=== PATIENT | male | born 1955 ===

== ENCOUNTER 2020-06-11 10:36 | Emergency (ER) | payer MEDICARE, MEDICAID ==
--- NOTE | 2020-06-11 11:25 | Event Note ---
ED Screening Note Date of service: 06/11/20 Time: 11:24 ED Screening Note: 65-year-old male presents to the ER today complaint of low abdominal pain, abdominal distention, difficulty urinating and dysuria for the past 2 days. Patient does have a history of BPH and is currently on Flomax. He denies any other associated symptoms at this time. This initial assessment/diagnostic orders/clinical plan/treatment(s) is/are subject to change based on patients health status, clinical progression and re- assessment by fellow clinical providers in the ED. Further treatment and workup at subsequent clinical providers discretion. Patient/guardian urged not to elope from the ED as their condition may be serious if not clinically assessed and managed. Initial orders include: Abdominal pain order set
[2020-06-11 12:00] LABS: Basophils # (Auto) 0.1 K/mm3 (0.0-0.1); Eosinophils # (Auto) 0.3 K/mm3 (0.0-0.4); Eosinophils % (Auto) 4.4 % (0.0-4.3); Hematocrit 38.1 % (35.5-45.6); Hemoglobin 12.6 gm/dl (11.8-15.2); Lymphocytes # (Auto) 2.7 K/mm3 (1.2-5.4); Lymphocytes % (Auto) 38.8 % (13.4-35.0); Mean Corpuscular HGB Conc 33 % (32-34); Mean Corpuscular Volume 80 fl (84-94); Monocytes # (Auto) 0.7 K/mm3 (0.0-0.8); Monocytes % (Auto) 9.5 % (0.0-7.3); Platelet Count 194 K/mm3 (140-440); Red Blood Count 4.74 M/mm3 (3.65-5.03); Red Cell Distribution Width 14.2 % (13.2-15.2)
[2020-06-11 12:19] LABS: Alanine Aminotransferase 23 units/L (7-56); Albumin 4.2 g/dL (3.9-5); BUN/Creatinine Ratio 7; Blood Urea Nitrogen 10 mg/dL (9-20); Calcium 9.4 mg/dL (8.4-10.2); Hemolysis Index 2
[2020-06-11 12:25] LABS: Bilirubin,Direct < 0.2 mg/dL (0-0.2)
[2020-06-11 12:34] LABS: Bilirubin,Urine NEG (Negative); Blood,Urine NEG (Negative); Color,Urine Straw (Yellow); Protein,Urine <15 mg/dL mg/dL (Negative); Urobilinogen,Urine < 2.0 mg/dL (<2.0)
--- NOTE | 2020-06-11 12:42 | Emergency Department Report ---
ED General Adult HPI - General Chief complaint: Abdominal Pain Stated complaint: GROIN AND LOWER ABD PAIN Time Seen by Provider: 06/11/20 10:53 Source: patient Mode of arrival: Ambulatory Limitations: No Limitations - History of Present Illness Initial comments: This is a 65-year-old male who is apparently dysarthric I presume from prior stroke. He presents with I believe his daughter who has limited knowledge of his medical condition. She states that she thinks he has seen a local urologist. She is not aware of him having a prostate condition. However, as per medical screening note: 65-year-old male presents to the ER today complaint of low abdominal pain, abdominal distention, difficulty urinating and dysuria for the past 2 days. Patient does have a history of BPH and is currently on Flomax. He denies any other associated symptoms at this time. The patient does point to the suprapubic area as a source of his discomfort. He urinated in the waiting room. After some time he did produce another urine specimen. It was really impossible to ascertain if he was having the sensation of urinary retention. As above, the history of BPH may be just a presumption. The patient is on Flomax. His symptoms are of the past less than 2 days duration. The family does not refer fever, chills, vomiting or change in bowel habits. They think the patient is having some dysuria. -: Gradual, days(s) Location: abdomen (Suprapubic area) Radiation: non-radiation Quality: aching Consistency: intermittent Improves with: none Worsens with: none Associated Symptoms: other (Question dysuria) Treatments Prior to Arrival: none - Related Data Previous Rx's Medication Instructions Recorded Last Taken Type Nitrofurantoin [place]/M-Cryst 100 mg PO Q12HR #14 capsule 06/11/20 Unknown Rx [Macrobid CAP] Allergies Allergy/AdvReac Type Severity Reaction Status Date / Time No Known Allergies Allergy Verified 06/11/20 10:46 ED Review of Systems ROS: Stated complaint: GROIN AND LOWER ABD PAIN Other details as noted in HPI Comment: Unobtainable due to pts medical conditions ED Past Medical Hx - Past Medical History Previous Medical History?: Yes Hx Hypertension: Yes - Surgical History Past Surgical History?: No - Social History Smoking Status: Never Smoker Substance Use Type: None - Medications Home Medications: Home Medications Medication Instructions Recorded Confirmed Last Taken Type Nitrofurantoin [place]/M-Cryst 100 mg PO Q12HR #14 capsule 06/11/20 Unknown Rx [Macrobid CAP] ED Physical Exam - General Limitations: Language Barrier (Expressive aphasia), Physical Limitation General appearance: alert, in no apparent distress - Head Head exam: Present: atraumatic, normocephalic - Eye Eye exam: Present: normal appearance. Absent: scleral icterus - ENT ENT exam: Present: mucous membranes moist - Neck Neck exam: Present: normal inspection - Respiratory Respiratory exam: Present: normal lung sounds bilaterally. Absent: respiratory distress - Cardiovascular Cardiovascular Exam: Present: regular rate, normal rhythm. Absent: systolic murmur, diastolic murmur, rubs, gallop - GI/Abdominal GI/Abdominal exam: Present: soft, normal bowel sounds, other (No gross cystomegaly, may be mild distention. ). Absent: distended, tenderness, guarding, rebound, rigid - Rectal Rectal exam: Present: deferred - Extremities Exam Extremities exam: Present: normal inspection. Absent: calf tenderness - Back Exam Back exam: Present: normal inspection - Neurological Exam Neurological exam: Present: alert, other (No acute focal deficit is referred or noted) - Psychiatric Psychiatric exam: Present: normal affect, normal mood - Skin Skin exam: Present: warm, dry, intact, normal color. Absent: rash ED Course Vital Signs 06/11/20 06/11/20 06/11/20 10:51 11:38 11:43 Temperature 97.9 F 97.3 F L Pulse Rate 75 78 Respiratory 16 13 18 Rate Blood Pressure 161/80 Blood Pressure 165/84 [Right] O2 Sat by Pulse 96 100 99 Oximetry 06/11/20 06/11/20 06/11/20 11:45 11:48 12:01 Temperature Pulse Rate 71 76 Respiratory 14 18 15 Rate Blood Pressure 165/84 165/84 Blood Pressure [Right] O2 Sat by Pulse 99 99 98 Oximetry 06/11/20 06/11/20 12:15 12:31 Temperature Pulse Rate 68 62 Respiratory 11 L 12 Rate Blood Pressure 150/57 150/57 Blood Pressure [Right] O2 Sat by Pulse 98 99 Oximetry - Reevaluation(s) Reevaluation #1: I discussed the patient's GFR and creatinine with CT staff. They stated they would give a half dose contrast followed by a saline flush as per radiology protocol. 06/11/20 12:43 ED Medical Decision Making - Lab Data Result diagrams: 06/11/20 11:42 06/11/20 11:42 Laboratory Results - last 24 hr 06/11/20 06/11/20 06/11/20 11:42 11:42 Unknown WBC 7.1 RBC 4.74 Hgb 12.6 Hct 38.1 MCV 80 L MCH 27 L MCHC 33 RDW 14.2 Plt Count 194 Lymph % (Auto) 38.8 H [place] % (Auto) 9.5 H Eos % (Auto) 4.4 H Baso % (Auto) 1.0 Lymph # (Auto) 2.7 [place] # (Auto) 0.7 Eos # (Auto) 0.3 Baso # (Auto) 0.1 Seg Neutrophils % 46.3 Seg Neutrophils # 3.3 Sodium 140 Potassium 3.8 Chloride 104.5 Carbon Dioxide 25 Anion Gap 14 BUN 10 Creatinine 1.4 H Estimated GFR 51 BUN/Creatinine Ratio 7 Glucose 93 Calcium 9.4 Total Bilirubin 1.00 Direct Bilirubin < 0.2 AST 28 ALT 23 Alkaline Phosphatase 84 Total Protein 7.0 Albumin 4.2 Albumin/Globulin Ratio 1.5 Lipase 31 Urine Color Straw Urine Turbidity Clear Urine pH 6.0 Ur Specific [place] 1.009 Urine Protein <15 mg/dl Urine Glucose (UA) Neg Urine Ketones Neg Urine Blood Neg Urine Nitrite Neg Urine Bilirubin Neg Urine Urobilinogen < 2.0 Ur Leukocyte Esterase Sm Urine WBC (Auto) 11.0 H Urine RBC (Auto) 2.0 U Epithel Cells (Auto) 1.0 Urine Yeast (Budding) Few - Radiology Data FINDINGS: LOWER CHEST: No significant abnormality. LIVER: No significant abnormality. GALLBLADDER: No significant abnormality. BILE DUCTS: No significant abnormality. PANCREAS: No significant abnormality. SPLEEN: No significant abnormality. ADRENALS: No significant abnormality of the right adrenal gland. An indeterminate left adrenal nodule measures 1.4 x 1.3 cm on image 28 of series 4. RIGHT KIDNEY / URETER: There is mild prominence of the right renal collecting system and ureter without visualization of an obstructive stone/other lesion. No other significant abnormality. LEFT KIDNEY / URETER: There is mild prominence of the left renal collecting system and ureter, similar to that seen on the right, without visualization of an obstructive stone/other lesion. There are multiple subcentimeter left renal cysts. No other significant abnormality. STOMACH / SMALL BOWEL: No significant abnormality. COLON: No significant abnormality. APPENDIX: No significant abnormality. PERITONEUM: No free fluid. No free air. No fluid collection. LYMPH NODES: No significant adenopathy. AORTA / ARTERIES: No significant abnormality. IVC / VEINS: No significant abnormality. URINARY BLADDER: Well-distended with mild perivesical fat stranding and mild wall thickening without an intraluminal abnormality. REPRODUCTIVE ORGANS: No significant abnormality. ADDITIONAL FINDINGS: Uncomplicated small left inguinal hernia containing fat. SKELETAL SYSTEM: No acute abnormality. Moderate dege nerative changes are noted along the spine. IMPRESSION: 1. Abnormal appearance of the bladder and symmetric mild prominence of the ureters and renal collecting systems could represent a UTI. Please correlate with the clinical findings. 2. No other acute abnormality to explain the patient's pain. Critical care attestation.: If time is entered above; I have spent that time in minutes in the direct care of this critically ill patient, excluding procedure time. ED Disposition Clinical Impression: Renal insufficiency, Distended bladder UTI (urinary tract infection) Qualifiers: Urinary tract infection type: acute cystitis Hematuria presence: without hematuria Qualified Code(s): N30.00 - Acute cystitis without hematuria Disposition: TO HOME OR SELFCARE Is pt being admited?: No Does the pt Need Aspirin: No Condition: Stable Instructions: Urinary Tract Infection, Adult, [id number], Urinary Tract Infection, Adult Additional Instructions: Return any acute change or problem. See your urologist. If you do not have one see referral. Rx for urinary tract infection. Return any significant increase in difficulty in urinating, fever, nausea vomiting or abdominal pain. Follow- up on urine culture test in 2 to 3 days. Prescriptions: Nitrofurantoin [place]/M-Cryst [Macrobid CAP] 100 mg PO Q12HR #14 capsule Referrals: PRIMARY CAREMD [Primary Care Provider] - 3-5 Days [facility] [Provider Group] - 2-3 Days Time of Disposition: 14:20
--- NOTE | 2020-06-11 14:00 | Cat Scan Report ---
CT ABDOMEN AND PELVIS WITH CONTRAST INDICATION / CLINICAL INFORMATION: Lower abdominal pain. TECHNIQUE: Axial CT images were obtained through the abdomen and pelvis after 60 cc Omnipaque [address] scans at this location are performed using CT dose reduction for ALARA by means of automated e xposure control. COMPARISON: None available. FINDINGS: LOWER CHEST: No significant abnormality. LIVER: No significant abnormality. GALLBLADDER: No significant abnormality. BILE DUCTS: No significant abnormality. PANCREAS: No significant abnormality. SPLEEN: No significant abnormality. ADRENALS: No significant abnormality of the right adrenal gland. An indeterminate left adrenal nodule measures 1.4 x 1.3 cm on image 28 of series 4. RIGHT KIDNEY / URETER: There is mild prominence of the right renal collecting system and ureter witho ut visualization of an obstructive stone/other lesion. No other significant abnormality. LEFT KIDNEY / URETER: There is mild prominence of the left renal collecting system and ureter, simila r to that seen on the right, without visualization of an obstructive stone/other lesion. There are mu ltiple subcentimeter left renal cysts. No other significant abnormality. STOMACH / SMALL BOWEL: No significant abnormality. COLON: No significant abnormality. APPENDIX: No significant abnormality. PERITONEUM: No free fluid. No free air. No fluid collection. LYMPH NODES: No significant adenopathy. AORTA / ARTERIES: No significant abnormality. IVC / VEINS: No significant abnormality. URINARY BLADDER: Well-distended with mild perivesical fat stranding and mild wall thickening without an intraluminal abnormality. REPRODUCTIVE ORGANS: No significant abnormality. ADDITIONAL FINDINGS: Uncomplicated small left inguinal hernia containing fat. SKELETAL SYSTEM: No acute abnormality. Moderate degenerative changes are noted along the spine. IMPRESSION: 1. Abnormal appearance of the bladder and symmetric mild prominence of the ureters and renal collecti ng systems could represent a UTI. Please correlate with the clinical findings. 2. No other acute abnormality to explain the patient's pain. Signer Name: Roberto Turner MD Signed: 06/11/2020 1:56 PM Workstation Name: [email or web address]
[2020-06-11 14:44] VITALS: BP 165/84
== END 2020-06-11 14:52 | disposition home or self-care (01) ==
LOC: ED 10:36
DX: N28.9 Disorder of kidney and ureter, unspecified (principal); N39.0 Urinary tract infection, site not specified; N32.89 Other specified disorders of bladder; I10 Essential (primary) hypertension; Z79.899 Other long term (current) drug therapy
CPT/HCPCS: 36415; 74177; 80048; 80076; 81001; 83690; 85025; 87086; 99284; Q9967